=== PATIENT | female | born 1980 | race American Indian/Alaskan Native ===

== ENCOUNTER 2018-09-27 07:17 | Emergency (ER) | payer OTHER ==
[2018-09-27 08:03] LABS: Basophils # (Auto) 0.1 K/mm3 (0.0-0.1); Basophils % (Auto) 0.8 % (0.0-1.8); Eosinophils # (Auto) 0.1 K/mm3 (0.0-0.4); Eosinophils % (Auto) 1.4 % (0.0-4.3); Hematocrit 26.9 % (30.3-42.9); Hemoglobin 9.4 gm/dl (10.1-14.3); Lymphocytes # (Auto) 1.4 K/mm3 (1.2-5.4); Lymphocytes % (Auto) 23.5 % (13.4-35.0); Mean Corpuscular HGB Conc 35 % (30-34); Mean Corpuscular Volume 92 fl (79-97); Monocytes # (Auto) 0.4 K/mm3 (0.0-0.8); Monocytes % (Auto) 6.4 % (0.0-7.3); Platelet Count 279 K/mm3 (140-440); Red Blood Count 2.92 M/mm3 (3.65-5.03); Red Cell Distribution Width 13.2 % (13.2-15.2)
--- NOTE | 2018-09-27 08:15 | Emergency Department Report ---
ED General Adult HPI - General Chief complaint: Recheck/Abnormal Lab/Rx Stated complaint: IRON DROPPING DAILY Time Seen by Provider: 09/27/18 07:53 Source: patient Mode of arrival: Ambulatory Limitations: No Limitations - History of Present Illness Initial comments: 38 y/o AAF with no history of deficiency. Plasma today [id number].Stateslasttimeshewas .Judgmentdepartmentforevaluation.Nochestpain,palpitations,nausea,vomitin g,fever,chills,weakness -: Gradual Radiation: non-radiation Improves with: none Worsens with: none Associated Symptoms: denies other symptoms Treatments Prior to Arrival: none - Related Data Previous Rx's Medication Instructions Recorded Last Taken Type Cyclobenzaprine [Flexeril] 10 mg PO BID PRN #12 tablet 04/16/18 Unknown Rx Ibuprofen [Motrin] 800 mg PO Q8HR PRN #20 tablet 04/16/18 Unknown Rx Sulfamethoxazole/Trimethoprim 1 each PO BID #20 tablet 04/16/18 Unknown Rx [Bactrim DS TAB] Allergies Allergy/AdvReac Type Severity Reaction Status Date / Time No Known Allergies Allergy Verified 09/27/18 07:24 ED Review of Systems ROS: Stated complaint: IRON DROPPING DAILY Other details as noted in HPI Constitutional: denies: chills, fever Eyes: denies: eye pain, eye discharge, vision change ENT: denies: ear pain, throat pain Respiratory: denies: cough, shortness of breath, wheezing Cardiovascular: denies: chest pain, palpitations Endocrine: no symptoms reported Gastrointestinal: denies: abdominal pain, nausea, diarrhea Genitourinary: denies: urgency, dysuria, discharge Musculoskeletal: denies: back pain, joint swelling, arthralgia Skin: denies: rash, lesions Neurological: denies: headache, weakness, paresthesias Psychiatric: denies: anxiety, depression Hematological/Lymphatic: denies: easy bleeding, easy bruising ED Past Medical Hx - Past Medical History Additional medical history: RT DVT 2002 - Surgical History Additional Surgical History: 3 - Social History Smoking Status: Never Smoker Substance Use Type: None - Medications Home Medications: Home Medications Medication Instructions Recorded Confirmed Last Taken Type Cyclobenzaprine [Flexeril] 10 mg PO BID PRN #12 tablet 04/16/18 Unknown Rx Ibuprofen [Motrin] 800 mg PO Q8HR PRN #20 tablet 04/16/18 Unknown Rx Sulfamethoxazole/Trimethoprim 1 each PO BID #20 tablet 04/16/18 Unknown Rx [Bactrim DS TAB] ED Physical Exam - General Limitations: No Limitations General appearance: alert, in no apparent distress - Head Head exam: Present: atraumatic, normocephalic - Eye Eye exam: Present: normal appearance, PERRL Pupils: Present: normal accommodation - ENT ENT exam: Present: normal exam, normal orophraynx, mucous membranes moist, TM's normal bilaterally - Neck Neck exam: Present: normal inspection - Respiratory Respiratory exam: Present: normal lung sounds bilaterally. Absent: respiratory distress - Cardiovascular Cardiovascular Exam: Present: regular rate, normal rhythm. Absent: systolic murmur, diastolic murmur, rubs, gallop - GI/Abdominal GI/Abdominal exam: Present: soft, normal bowel sounds - Extremities Exam Extremities exam: Present: normal inspection - Back Exam Back exam: Present: normal inspection - Neurological Exam Neurological exam: Present: alert, oriented X3 - Psychiatric Psychiatric exam: Present: normal affect, normal mood - Skin Skin exam: Present: warm, dry, intact, normal color. Absent: rash ED Medical Decision Making - Lab Data Result diagrams: 09/27/18 07:43 Critical care attestation.: If time is entered above; I have spent that time in minutes in the direct care of this critically ill patient, excluding procedure time. ED Disposition Clinical Impression: Anemia Disposition: DC-01 TO HOME OR SELFCARE Is pt being admited?: No Does the pt Need Aspirin: No Condition: Stable Instructions: Iron Rich Diet (ED), Iron Deficiency Anemia (ED) Additional Instructions: Please Continue the utilization of your iron followed her primary care provider for reevaluation of urine. Anemia. Referrals: BHARATH SESAY MD [Primary Care Provider] - 3-5 Days
[2018-09-27 08:45] LABS: HCG Qualitative,Urine Negative (Negative)
== END 2018-09-27 09:54 | disposition home or self-care (01) ==
LOC: ED 07:17
DX: D64.9 Anemia, unspecified (principal)
CPT/HCPCS: 36415; 81025; 85025; 86850; 86900; 86901; 99283

== ENCOUNTER 2018-11-15 13:22 | Emergency (ER) | payer SELFPAY ==
[2018-11-15 13:33] VITALS: BP 107/63
[2018-11-15 14:15] LABS: Basophils # (Auto) 0.1 K/mm3 (0.0-0.1); Basophils % (Auto) 0.8 % (0.0-1.8); Eosinophils # (Auto) 0.1 K/mm3 (0.0-0.4); Eosinophils % (Auto) 1.2 % (0.0-4.3); Hematocrit 29.8 % (30.3-42.9); Hemoglobin 10.1 gm/dl (10.1-14.3); Lymphocytes # (Auto) 2.6 K/mm3 (1.2-5.4); Lymphocytes % (Auto) 33.5 % (13.4-35.0); Mean Corpuscular HGB Conc 34 % (30-34); Mean Corpuscular Hemoglobin 32 pg (28-32); Mean Corpuscular Volume 94 fl (79-97); Monocytes # (Auto) 0.5 K/mm3 (0.0-0.8); Monocytes % (Auto) 6.1 % (0.0-7.3); Platelet Count 318 K/mm3 (140-440); Red Blood Count 3.19 M/mm3 (3.65-5.03); Red Cell Distribution Width 13.3 % (13.2-15.2)
[2018-11-15 14:30] LABS: Bilirubin,Urine NEG (Negative); Blood,Urine LG (Negative); Color,Urine Yellow (Yellow); Mucus,Urine FEW /HPF; Protein,Urine <15 mg/dL mg/dL (Negative)
[2018-11-15 14:35] LABS: HCG Qualitative,Urine Negative (Negative)
[2018-11-15 14:36] LABS: Alanine Aminotransferase 8 units/L (7-56); Albumin 3.6 g/dL (3.9-5); BUN/Creatinine Ratio 20; Blood Urea Nitrogen 12 mg/dL (7-17); Calcium 8.6 mg/dL (8.4-10.2); Hemolysis Index 7
--- NOTE | 2018-11-15 16:18 | Emergency Department Report ---
ED Abdominal Pain HPI - General Chief Complaint: Abdominal Pain Stated Complaint: LT SIDE PAIN Time Seen by Provider: 11/15/18 15:33 Source: patient Mode of arrival: Ambulatory Limitations: No Limitations - History of Present Illness Initial Comments: This 38 -year-old female who presents to ED complaining of left knee abdominal pain 2 weeks. Patient states the symptoms started 2 weeks ago and has progressed. Patient denies any radiation or migration elsewhere. Patient states pain is localized to the left side umbilical abdomen. Patient states the pain is crampy and achy in nature. She denies fever, chills, nausea, vomiting, diarrhea, shortness of breath, chest pain or any other symptoms. MD Complaint: abdominal pain - Related Data Previous Rx's Medication Instructions Recorded Last Taken Type Cyclobenzaprine [Flexeril] 10 mg PO BID PRN #12 tablet 04/16/18 Unknown Rx Ibuprofen [Motrin] 800 mg PO Q8HR PRN #20 tablet 04/16/18 Unknown Rx Sulfamethoxazole/Trimethoprim 1 each PO BID #20 tablet 18 Unknown Rx [Bactrim DS TAB] Dicyclomine [Bentyl] 10 mg PO BID #20 capsule 11/15/18 Unknown Rx Allergies Allergy/AdvReac Type Severity Reaction Status Date / Time No Known Allergies Allergy Verified 09/27/18 07:24 ED Review of Systems ROS: Stated complaint: LT SIDE PAIN Other details as noted in HPI Comment: All other systems reviewed and negative ED Past Medical Hx - Past Medical History Previous Medical History?: Yes Additional medical history: RT DVT 2002 - Surgical History Additional Surgical History: 3 - Social History Smoking Status: Never Smoker Substance Use Type: None - Medications Home Medications: Home Medications Medication Instructions Recorded Confirmed Last Taken Type Cyclobenzaprine [Flexeril] 10 mg PO BID PRN #12 tablet 18 Unknown Rx Ibuprofen [Motrin] 800 mg PO Q8HR PRN #20 tablet 18 Unknown Rx Sulfamethoxazole/Trimethoprim 1 each PO BID #20 tablet 18 Unknown Rx [Bactrim DS TAB] Dicyclomine [Bentyl] 10 mg PO BID #20 capsule 11/15/18 Unknown Rx ED Physical Exam - General Limitations: No Limitations General appearance: alert, in no apparent distress - Head Head exam: Present: atraumatic, normocephalic - Eye Eye exam: Present: normal appearance - ENT ENT exam: Present: mucous membranes moist - Neck Neck exam: Present: normal inspection - Respiratory Respiratory exam: Present: normal lung sounds bilaterally. Absent: respiratory distress - Cardiovascular Cardiovascular Exam: Present: regular rate, normal rhythm. Absent: systolic murmur, diastolic murmur, rubs, gallop - GI/Abdominal GI/Abdominal exam: Present: soft, normal bowel sounds. Absent: distended, tenderness, guarding, rebound - Extremities Exam Extremities exam: Present: normal inspection - Back Exam Back exam: Present: normal inspection, full ROM. Absent: tenderness, CVA tenderness (R), CVA tenderness (L) - Neurological Exam Neurological exam: Present: alert, oriented X3 - Psychiatric Psychiatric exam: Present: normal affect, normal mood - Skin Skin exam: Present: warm, dry, intact, normal color. Absent: rash ED Course Vital Signs 11/15/18 13:29 Temperature 98.8 F Pulse Rate 69 Respiratory 18 Rate Blood Pressure 107/63 O2 Sat by Pulse 98 Oximetry ED Medical Decision Making - Lab Data Result diagrams: 11/15/18 13:47 11/15/18 13:47 - Medical Decision Making 38-year-old female presents easy with left flank pain. CBC, CMP, urinalysis and test obtained. WITH within normal limits. Discussed findings with the patient. Discussed the patient to follow up with the primary care physician. Gastroen terologist referral given to her for follow-up. Discussed increase hydration with patient. Vital signs are normal patient is in no acute distress. Critical care attestation.: If time is entered above; I have spent that time in minutes in the direct care of this critically ill patient, excluding procedure time. ED Disposition Clinical Impression: Left flank pain Disposition: DC-01 TO HOME OR SELFCARE Is pt being admited?: No Does the pt Need Aspirin: No Condition: Stable Instructions: Abdominal Pain (ED), Flank Pain (ED) Additional Instructions: Make sure to follow up with the primary care physician as discussed. Take all your medications as you've been prescribed. If you have any worsening symptoms or develop new symptoms please return to ED immediately. Prescriptions: Dicyclomine [Bentyl] 10 mg PO BID #20 capsule Referrals: BHARATH SESAY MD [Primary Care Provider] - 3-[address] [facility] [Provider Group] - 3-5 Days [facility] [Provider Group] - 3-5 Days Forms: Work/School Release Form(ED) Time of Disposition: 16:30
== END 2018-11-15 16:41 | disposition home or self-care (01) ==
LOC: ED 13:22
DX: R10.9 Unspecified abdominal pain (principal); M25.562 Pain in left knee
CPT/HCPCS: 36415; 80053; 81001; 81025; 85025

== ENCOUNTER 2019-02-12 07:21 | Emergency (ER) | payer SELFPAY ==
[2019-02-12 07:31] VITALS: BP 117/68
[2019-02-12] MEDS ORDERED: ROBITUSSIN PO ONE (07:55)
--- NOTE | 2019-02-12 07:59 | Emergency Department Report ---
Minor Respiratory - HPI Chief Complaint: Upper Respiratory Infection Stated Complaint: SOB Time Seen by Provider: 02/12/19 07:45 Duration: 3 Days Pain Location: Chest (congestion) Severity: moderate Minor Respiratory: Yes Able to Tolerate Fluids, Yes Cough, No Rhinorrhea, No Sore Throat, No Ear Pain, No Sick Contacts, No Hemoptysis, No Chest Pain, No Shortness of Breath, No Fever Other History: This 38-year-old female with no problem medical history presents to the ED complaining of dry intermittent nonproductive cough past 2-3 days. Patient denies fever assess chills/nausea vomiting. 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 ED Review of Systems ROS: Stated complaint: SOB Other details as noted in HPI Comment: All other systems reviewed and negative ED Past Medical Hx - Past Medical History Previous Medical History?: No Additional medical history: RT DVT 2002 - Surgical History Past Surgical History?: Yes Additional Surgical History: 3 - Social History Smoking Status: Never Smoker Substance Use Type: None - Medications Home Medications: Home Medications Medication Instructions Recorded Confirmed Last Taken Type Cyclobenzaprine [Flexeril] 10 mg PO BID PRN #12 tablet 04/16/18 Unknown Rx Ibuprofen [Motrin] 800 mg PO Q8HR PRN #20 tablet 04/16/18 Unknown Rx Sulfamethoxazole/Trimethoprim 1 each PO BID #20 tablet 04/16/18 Unknown Rx [Bactrim DS TAB] Dicyclomine [Bentyl] 10 mg PO BID #20 capsule 11/15/18 Unknown Rx Benzonatate [Tessalon Perles] 100 mg PO Q8HR #20 capsule 02/12/19 Unknown Rx Minor Respiratory Exam - Exam General: Vital signs noted. No distress. Alert and acting appropriately. HEENT: Yes Moist Mucous Membranes, No Pharyngeal Erythema, No Pharyngeal Exudates, No Rhinorrhea, No Conjuctival Injection, No Frontal Tenderness, No Maxillary Tenderness Ear: Neither TM Bulge, Neither TM Erythema, Neither EAC Pain, Neither EAC Discharge Neck: Yes Supple, No Adenopathy Lungs: Yes Good Air Exchange, No Wheezes, No Ronchi, No Stridor, No Cough, No Labored Respirations, No Retractions, No Use of Accessory Muscles, No Other Abnormal Lung Sounds Heart: Yes Regular, No Murmur Abdomen: Yes Normal Bowel Sounds, No Tenderness, No Peritoneal Signs Skin: No Rash, No Edema Neurologic: Alert and oriented, no deficits. Musculoskeletal: Unremarkable. ED Course Vital Signs 02/12/19 07:26 Temperature 98.4 F Pulse Rate 88 Respiratory 16 Rate Blood Pressure 117/68 O2 Sat by Pulse 98 Oximetry ED Medical Decision Making - Radiology Data Radiology results: report reviewed, image reviewed INDICATION / CLINICAL INFORMATION: SOB, cough x 3 weeks.. COMPARISON: None available. FINDINGS: SUPPORT DEVICES: None. HEART / MEDIASTINUM: No significant abnormality. LUNGS / PLEURA: No significant pulmonary or pleural abnormality. No pneumothorax. ADDITIONAL FINDINGS: No significant additional findings. IMPRESSION: 1. No acute findings. Signer Name: Deshaun Thompson MD Signed: 02/12/2019 7:56 AM Workstation Name: [id number] Transcribed By: EMERSON Dictated By: Deshaun Thompson MD Electronically Authenticated By: Deshaun Thompson MD Signed Date/Time: 02/12/19 0756 - Medical Decision Making 38 y o female presents with upper respiratory infection most likely viral in nature. Chest x-ray obtained and shows no acute findings Discussed his findings with the patient. Signs are normal. Patient is in no acute or respiratory distress Discussed the patient to follow up with primary care physician. Discussed appropriate rest and [id number] symptom relief Critical care attestation.: If time is entered above; I have spent that time in minutes in the direct care of this critically ill patient, excluding procedure time. ED Disposition Clinical Impression: Acute bronchitis Disposition: DC-01 TO HOME OR SELFCARE Is pt being admited?: No Does the pt Need Aspirin: No Condition: Stable Instructions: Upper Respiratory Infection (ED), Acute Bronchitis (ED) Additional Instructions: Make sure to follow up with the primary care physician as discussed. Take all your medications as you've been prescribed. If you have any worsening symptoms or develop new symptoms please return to ED immediately. Prescriptions: Benzonatate [Tessalon Perles] 100 mg PO Q8HR #20 capsule Referrals: PRIMARY CARE, [Primary Care Provider] - 3-[address] [facility] [Outside] - 3-5 Days [facility] [Outside] - 3-5 Days Forms: Work/School Release Form(ED) Time of Disposition: 08:30
== END 2019-02-12 08:47 | disposition home or self-care (01) ==
LOC: ED 07:21
DX: J20.9 Acute bronchitis, unspecified (principal); Z79.899 Other long term (current) drug therapy
CPT/HCPCS: 71046; 99283

== ENCOUNTER 2021-05-14 12:48 | Emergency (ER) | payer MEDICAID, SELFPAY ==
[2021-05-14 13:49] VITALS: BP 122/71
--- NOTE | 2021-05-14 14:05 | Emergency Department Report ---
Minor Respiratory - HPI Chief Complaint: Upper Respiratory Infection Stated Complaint: POSITIVE COVID TEST, BLOOD IN MUCUS Duration: 1 Day Severity: mild Minor Respiratory: Yes Able to Tolerate Fluids, Yes Cough, Yes Sick Contacts, No Rhinorrhea, No Sore Throat, No Ear Pain, No Hemoptysis, No Chest Pain, No Shortness of Breath, No Fever Other History: 41-year-old female presents to the ED who tested positive on yesterdayat her job. She stated that her employer stated she must be evaluated by a medical facility since testing positive. Patient states that she had 1 cough that she noticed blood-streaked on yesterday but no further coughing today. Patient is alert and oriented x4. No acute distress noted. No ill appearance noted. ED Review of Systems ROS: Stated complaint: POSITIVE COVID TEST, BLOOD IN MUCUS Other details as noted in HPI Constitutional: denies: chills, fever Eyes: denies: eye pain, eye discharge, vision change ENT: denies: ear pain, throat pain Respiratory: cough. denies: shortness of breath, wheezing Cardiovascular: denies: chest pain, palpitations Endocrine: no symptoms reported Gastrointestinal: denies: abdominal pain, nausea, diarrhea Genitourinary: denies: urgency, dysuria, discharge Musculoskeletal: denies: back pain, joint swelling, arthralgia Skin: denies: rash, lesions Neurological: denies: headache, weakness, paresthesias Psychiatric: denies: anxiety, depression Hematological/Lymphatic: denies: easy bleeding, easy bruising ED Past Medical Hx - Past Medical History Previous Medical History?: Yes Additional medical history: RT DVT 2002 - Surgical History Past Surgical History?: Yes Additional Surgical History: 3 - Social History Smoking Status: Never Smoker Substance Use Type: None - Medications Home Medications: Home Medications Medication Instructions Recorded Confirmed Last Taken Type Cyclobenzaprine [Flexeril] 10 mg PO BID PRN #12 tablet 04/16/18 05/14/21 Unknown Rx Ibuprofen [Motrin] 800 mg PO Q8HR PRN #20 tablet 04/16/18 05/14/21 Unknown Rx Sulfamethoxazole/Trimethoprim 1 each PO BID #20 tablet 04/16/18 05/14/21 Unknown Rx [Bactrim DS TAB] Dicyclomine [Bentyl] 10 mg PO BID #20 capsule 11/15/18 05/14/21 Unknown Rx Benzonatate [Tessalon Perles] 100 mg PO Q8HR #20 capsule 02/12/19 05/14/21 Unknown Rx Minor Respiratory Exam - Exam General: Vital signs noted. No distress. Alert and acting appropriately. HEENT: Yes Moist Mucous Membranes, No Pharyngeal Erythema, No Pharyngeal Exudates, No Rhinorrhea, No Conjuctival Injection, No Frontal Tenderness, No Maxillary Tenderness Ear: Neither TM Bulge, Neither TM Erythema, Neither EAC Pain, Neither EAC Discharge Neck: Yes Supple, No Adenopathy Lungs: Yes Good Air Exchange, No Wheezes, No Ronchi, No Stridor, No Cough, No Labored Respirations, No Retractions, No Use of Accessory Muscles, No Other Abnormal Lung Sounds Heart: Yes Regular, No Murmur Abdomen: Yes Normal Bowel Sounds, No Tenderness, No Peritoneal Signs Skin: No Rash, No Edema Neurologic: Alert and oriented, no deficits. Musculoskeletal: Unremarkable. ED Course Vital Signs 05/14/21 05/14/21 13:48 13:59 Temperature 98.4 F Pulse Rate 67 Respiratory 18 Rate Blood Pressure 122/71 O2 Sat by Pulse 96 99 Oximetry ED Medical Decision Making - Medical Decision Making 41-year-old female presents to the ED who tested positive on yesterday at her job. She stated that her employer stated she must be evaluated by a medical facility since testing positive. Patient states that she had 1 cough that she noticed blood-streaked on yesterday but no further coughing today. Patient is alert and oriented x4. No acute distress noted. No ill appearance noted. Informed patient to return to ED for any worsening symptoms of shortness of breath or any new symptoms. No significant finding for any diagnostic testing, lab any further evaluation . Instruct patient to quarantine. Instructed patient to follow-up in outpatient or primary care doctor to have COVID tested repeated as we do not do rapid COVID test in the ED. - Differential Diagnosis COVID ,influenza,common cold Critical care attestation.: If time is entered above; I have spent that time in minutes in the direct care of this critically ill patient, excluding procedure time. ED Disposition Clinical Impression: COVID-19 Disposition: HOME / SELF CARE / HOMELESS Is pt being admited?: No Does the pt Need Aspirin: No Condition: Stable Instructions: COVID-19 Frequently Asked Questions, COVID-19 Additional Instructions: Your symptoms appear most consistent with a nonspecific viral syndrome. However, given this current pandemic, COVID-19 is in the differential of possibilities. Despite your previous negative COVID-19 test, I do recommend repeat outpatient Covid 19 testing. In the meantime, isolate/quarantine yourself and stay away from anyone who is elderly, immunocompromised or chronically ill. You can use ibuprofen every 6-8 hours and Tylenol every 4-8 hours, using the dosing on the back of the bottle, as needed for any fever or body aches. Return to the emergency department with any worsening of your symptoms, development of chest pain or shortness of breath, or with any acute distress. Referrals: [facility] [Provider Group] - 3-5 Days
== END 2021-05-14 14:27 | disposition home or self-care (01) ==
LOC: ED 12:48
DX: U07.1 COVID-19 (principal)
CPT/HCPCS: 99281